=== PATIENT | male | born 1940 | race Caucasian/White ===

== ENCOUNTER 2017-02-21 09:14 | Outpatient (CLI) | payer MEDICARE ==
--- NOTE | 2017-02-21 10:06 | RAD ---
THREE VIEWS LUMBAR SPINE: Indication: Lumbar stenosis. FINDINGS: There is anterior translation of L2 on L3 that is stable with flexion but is slightly reduced with e xtension. There is multilevel disc degenerative facet osteoarthritic change of the lumbar spine. IMPRESSION: 1. Grade I anterolisthesis of L2 on L3 which is stable with flexion but reduces with extension. 2. Moderate spondylosis of the lumbar spine. POS: [facility]
--- NOTE | 2017-02-21 11:29 | MRI ---
MRI LUMBAR SPINE WITH AND WITHOUT IV CONTRAST: Date: 02/21/17 INDICATION: Worsening low back pain for the last 3 years. COMPARISON: Lumbar spine radiographs dated 02/21/17. TECHNIQUE: Multiplanar, multisequence MR images were obtained of the lumbar spine with and without contrast uti lizing 17 mL of MultiHance. FINDINGS: There are laminectomy changes seen from L2 through L5. The conus is seen to terminate at approximate ly T12-L1. No bone marrow signal abnormality is evident. Visualized retroperitoneum demonstrates no definite acute abnormality. There are multiple small peripelvic cysts. T2 hyperintensity is seen wit hin the right hepatic lobe, incompletely characterized, measuring 3.1 cm on the current exam. At L5-S1, there is a broad based disc osteophyte complex asymmetric to the left. There is facet join t degenerative change inducing mild left neural foraminal narrowing. At L4-5, there is a broad based bulge with facet joint degenerative change inducing mild bilateral n eural foraminal narrowing. At L3-4, there is facet joint degenerative change with broad based bulge inducing mild bilateral oliver ral foraminal narrowing, left greater than right. At L2-3, there is a broad based bulge with facet joint degenerative change inducing mild bilateral n eural foraminal narrowing. At L1-L2, there is mild facet joint degenerative change without appreciable central canal or neural foraminal narrowing. At T12-L1, there is no appreciable central canal or neural foraminal narrowing. Postcontrast images demonstrate no areas of abnormal enhancement. There is dilatation of the central canal of the lower spinal cord measuring up to 2.5 mm. IMPRESSION: 1. Postoperative lumbar spine. 2. 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 Recommend MRI of cervical and thoracic spine with and without contrast to evaluate for possible intramedullary lesion. 3. Right hepatic lobe cystic lesion. Recommend CT abdomen with and with out contrast for furth er evalution. POS: [facility]
== END 2017-02-21 09:15 | disposition home or self-care (01) ==
LOC: TBSIIMAG 09:14
PROVIDERS: ATTEND Neurological Surgery
DX: M48.061 Spinal stenosis, lumbar region without neurogenic claudication (principal); M47.816 Spondylosis without myelopathy or radiculopathy, lumbar region; M43.16 Spondylolisthesis, lumbar region; K76.89 Other specified diseases of liver; G95.0 Syringomyelia and syringobulbia; Z98.890 Other specified postprocedural states
CPT/HCPCS: 72100; 72158

== ENCOUNTER 2017-04-07 12:34 | Outpatient (CLI) | payer MEDICARE ==
--- NOTE | 2017-04-07 15:53 | MRI ---
THORACIC SPINE MRI NONCONTRAST 04/07/17 INDICATION: Polyneuropathy, gait abnormality with history of back pain. FINDINGS: Incidental note of multilevel degenerative change throughout the cervical spine. The imaged thoracic spinal cord reveals multilevel intrinsic T2 hyperintensity localizing to the expected region of the central spinal canal most compatible with hydrosyringomyelia. This was partially visualized and noted on prior lumbar spine, 02/21/17. Throughout the thoracic spine, there are minimal areas of disc bulge/disc osteophyte complex without high grade central canal stenosis or significant foraminal compromise. There is no evidence of compression deformity. There are small areas of end plate centered marrow lucero ma most consistent with areas of small, acute Schmorl's node formation at the mid to low thoracic spi ne, which involve the T7-8 and T10-11 levels. Incidental imaging of areas of signal alteration at the posterior lung zones, incompletely evaluated. IMPRESSION: 1. Findings most consistent with multifocal syringohydromyelia throughout the thoracic spine. As a conservative measure, a followup postcontrast exam is recommended to exclude the possibility of un derlying pathologic intramedullary enhancement. 2. Mild degenerative change of the thoracic spine without significant compromise of central rajiv l, or neural foramina. 3. Nonspecific patchy signal alteration of the imaged portions of the lungs incompletely evaluat ed. Recommended dedicated two view chest radiograph series to further assess. POS: [facility]
== END 2017-04-07 12:35 | disposition home or self-care (01) ==
LOC: TBSIIMAG 12:34
PROVIDERS: ATTEND Psychiatry & Neurology Neurology
DX: G62.9 Polyneuropathy, unspecified (principal); R26.9 Unspecified abnormalities of gait and mobility; M47.814 Spondylosis without myelopathy or radiculopathy, thoracic region; G95.0 Syringomyelia and syringobulbia
CPT/HCPCS: 72146

== ENCOUNTER 2017-04-27 15:19 | Outpatient (CLI) | payer MEDICARE ==
--- NOTE | 2017-04-27 17:21 | RAD ---
PA AND LATERAL VIEWS CHEST: 04/27/17 HISTORY: Unsteady gait and weakness, bladder cancer. FINDINGS: The heart size is normal. The lungs are expanded without focal areas of consolidation, pneumothorax o r pleural effusions. There are old left sided rib fractures. IMPRESSION: No radiographic evidence of acute cardiopulmonary process. POS: [facility]
--- NOTE | 2017-04-27 17:54 | MRI ---
THORACIC SPINE MRI WITH CONTRAST: 04/27/17 INDICATION: Unsteady gait with weakness. Reference made to preceding thoracic spine MRI 04/07/17. FINDINGS: Postcontrast imaging of thoracic spine performed which reveals no intrinsic, pathologic intramedullar y enhancement. Redemonstration of linear increased T2 signal of the thoracic spinal cord most consist ent with hydrosyringomyelia. There is no mass producing enhancement of the vertebral canal. No acute disc space inflammatory process. There are scattered foci of end plate signal alteration and enhancem ent which may be on the basis of Schmorl's nodes. Subtle patchy areas of signal alteration of the imaged posterior lungs are nonspecific and incomplete ly assessed. IMPRESSION: No pathologic intramedullary enhancement of the thoracic spinal cord, with findings on previous exam most consistent with syringohydromyelia. Note is made that there is a prominent degree of patient motion during the exam which does limit sens itivity of the evaluation. POS: [facility]
== END 2017-04-27 15:20 | disposition home or self-care (01) ==
LOC: TBSIIMAG 15:19
PROVIDERS: ATTEND Psychiatry & Neurology Neurology
DX: G95.0 Syringomyelia and syringobulbia (principal)
CPT/HCPCS: 71020; 72147

== ENCOUNTER 2017-06-09 12:35 | Outpatient (CLI) | payer MEDICARE ==
--- NOTE | 2017-06-09 14:52 | MRI ---
MRI BRAIN WITH AND WITHOUT CONTRAST: HISTORY: Syringomyelia with history of unsteady gait and weakness. FINDINGS: There are multifocal signal abnormalities in the bilateral cerebral white matter. There are multifoc al areas of increased signal involving the bilateral periventricular white matter on DWI imaging seri es with associated increased T2 signal on ADC map compatible with areas of T2 shine-through. These f indings demonstrate cavitary morphology without discernible enhancement. No intracranial hemorrhage. There is parenchyma volume loss with compensatory dilatation of the ventricular system. Motion art ifact limits assessment of the skull base flow voids which are otherwise grossly patent. Crow intr aocular lenses are absent. IMPRESSION: Bilateral periventricular white matter signal abnormalities which are predominantly cavitary in appea [place] without discernible enhancement. No associated restricted diffusion. Given patient's age, the se favor areas of cavitation related to prior lacunar infarctions. Sequelae from demyelinating disea se is not excluded. Correlate clinically. POS: [facility]
--- NOTE | 2017-06-09 15:24 | MRI ---
MRI OF CERVICAL SPINE WITH AND WITHOUT CONTRAST: DATE: 06/09/17. HISTORY: A 77-year-old male with syringohydromyelia of the thoracic spinal cord. TECHNIQUE: Multisequence MRI of the C-spine obtained in sagittal and axial planes, pre- and post-IV injection of 17 mL of MultiHance Gadolinium-based contrast agent. COMPARISON: No prior imaging studies of the cervical spine. FINDINGS: All of the images are degraded by patient motion. The cervical spinal cord is diffusely small in ecly iber. There are small thin regions of apparent intramedullary T2 hyperintensity at various levels in the cervical spinal cord. Some of this could represent motion artifact. Others, especially on the left at C5-6, probably represent myelomalacia. There is another such focus at C7-T1, slightly to the left of midline. This is also associated with a slightly greater degree of cord atrophy, and theref ore this is also probably myelomalacia rather than a syrinx. There is no Chiari-I malformation. The re is multilevel degenerative facet disease bilaterally, mild and moderate, left greater than right. There is multilevel mild and moderate degenerative disk disease, with moderate to severe disk space narrowing at C5-6 and C6-7, and mild disk space narrowing at C3-4. The C2-3 and C3-4 disk spaces are maintained. The degenerative facet changes cause a chronic mild grade I anterolisthesis of C5 on C6 . There is minimal degenerative retrolisthesis of C3 on C4. The cervical spinal canal is diffusely small in caliber on a congenital basis due to developmentally short pedicles. However, this is accom modated by the atrophy of the spinal cord. Within the limitations of a motion-degraded study, there is no gross evidence of abnormal enhancement or mass involving the intramedullary, extramedullary-int radural, extradural, intraosseous, or perivertebral spaces. The vertebral body heights are maintaine d. The findings by individual levels are as follows: C1-2: No additional findings. C2-3: No central or neural foraminal stenosis. C3-4: Thickened ligamentum flavum, mild broad-based disk-osteophytic bar complex (left greater than right), and the developmentally small-caliber spinal canal, result in mild to moderate central spinal canal stenosis. There is probably bilateral mild to moderate neural foraminal stenosis. C4-5: Broad-based disk-osteophytic bar complex, prominently thickened ligamentum flavum, and the dev elopmentally small-caliber spinal canal, result in severe central spinal canal stenosis. Despite thi s, there is some accommodation by the cord atrophy. Bilateral uncinate process moderate-sized osteop hytes result in moderate to severe left neural foraminal stenosis and severe right neural foraminal s tenosis. C5-6: The findings are similar to that of the other 2 levels above this, but the degree of central s taylor canal stenosis is moderate. There is mild to moderate bilateral neural foraminal stenosis. C6-7: No central stenosis. At least moderate right neural foraminal stenosis. Mild to moderate lef t neural foraminal stenosis. C7-T1: Spinal canal is generous in caliber. No neural foraminal stenosis. IMPRESSION: 1. Diffuse atrophy of the cervical spinal cord (and also the visualized upper portions of the thorac ic spinal cord). 2. Small regions of myelomalacia in the cervical spinal cord. 3. No convincing evidence of syringohydromyelia or neoplasm. 4. Cervical spondylosis with central spinal canal stenosis at the middle levels, and multilevel neur al foraminal stenosis. POS: [facility]
== END 2017-06-09 12:36 | disposition home or self-care (01) ==
LOC: SCSMRI 12:35
PROVIDERS: ATTEND Psychiatry & Neurology Neurology
DX: G95.0 Syringomyelia and syringobulbia (principal); G95.89 Other specified diseases of spinal cord; M47.892 Other spondylosis, cervical region; M48.02 Spinal stenosis, cervical region; M99.81 Other biomechanical lesions of cervical region
CPT/HCPCS: 70553; 72156

== ENCOUNTER 2017-09-18 14:09 | Outpatient (CLI) | payer MEDICARE ==
--- NOTE | 2017-09-18 15:38 | RAD ---
TWO VIEW CHEST: COMPARISON: 04/27/17. INDICATION: Empyema. FINDINGS: There is an abnormal heterogeneous density of the left perihilar region, new from prior exam. Lungs are hyperinflated. There is pleural-based thickening/adjacent opacification at the inferior left soto st with flattening of the left hemidiaphragm. IMPRESSION: Newly developed heterogeneous density left perihilar region. This could relate to an area of rounded perihilar pneumonia versus mass. Two-view chest radiograph followup is necessary to confirm resolut ion. If radiographic abnormality persists at that time, contrast-enhanced CT thorax would be indicat ed to exclude the possibility of underlying malignancy. CODE T POS: [facility]
== END 2017-09-18 14:10 | disposition home or self-care (01) ==
LOC: RAD 14:09
PROVIDERS: ATTEND Thoracic Surgery (Cardiothoracic Vascular Surgery)
DX: J86.9 Pyothorax without fistula (principal); R91.8 Other nonspecific abnormal finding of lung field
CPT/HCPCS: 71046